=== PATIENT | male | born 2000 | race Caucasian/White ===

== ENCOUNTER 2022-03-15 11:52 | Emergency (ER) | payer OTHER, SELFPAY ==
[2022-03-15 11:53] VITALS: BP 140/71; PULSE 105; RESP 17; TEMP 37.1; O2SAT 96; BMI 33.0
--- NOTE | 2022-03-15 12:39 | RAD_ITS ---
EXAM: XR CHEST, 2 VIEWS CLINICAL INDICATION: chest pain TECHNIQUE: Frontal and lateral views of the chest. This report was created using [employer] report generation technology. COMPARISON: None. FINDINGS: LUNGS AND PLEURAL SPACES: Normal. No consolidation or edema. No pneumothorax. No effusion. HEART: Normal heart size. MEDIASTINUM: No mediastinal or hilar mass. BONES/JOINTS: No acute abnormality. SOFT TISSUES: Normal. RAD/Chest PA and Lateral IMPRESSION: No acute cardiopulmonary disease. Electronically Signed: Madhav Gray MD at 13:02 EST ,
--- NOTE | 2022-03-15 12:39 | EKG12_ITS ---
Test Reason : NAUSEA/VOMITING Blood Pressure : / mmHG Vent. Rate : 075 BPM Atrial Rate : 075 BPM P-R Int : 158 ms QRS Dur : 084 ms QT Int : 346 ms P-R-T Axes : 044 054 018 degrees QTc Int : 386 ms Sinus rhythm with marked sinus arrhythmia Otherwise normal ECG Confirmed by CLAUDY THOMAS, CORETTA ([id number]), manager editorial CANDIDA WRIGHT ([id number]) on 03/16/2022 12:06:42 PM Referred By: Confirmed By:CORETTA LOCO MD
--- NOTE | 2022-03-15 12:42 | EDS_ITS ---
HPI <MICKIE Barlow - Last Filed: 03/15/22 14:25> History of Present Illness Chief Complaint: Nausea/Vomiting Narrative Narrative: 21-year-old male presents with nausea/vomiting and chest pain. He states for the last 2 years he has vomited once every morning. Yesterday he was vomiting continuously throughout the day what looked like yellow bile. He is nauseous today but has kept down crackers without vomiting. He has never been evaluated for this issue. He does smoke weed almost daily and takes no medications. He also complains of midsternal chest pain that is been constant for the last 5 days. There is no radiation, shortness of breath, or diaphoresis. No leg pain or swelling. No cough or URI symptoms. PFSH <MICKIE Barlow - Last Filed: 03/15/22 14:25> [facility] Medical History Back pain History of fracture of clavicle Home Medications omeprazole 20 mg capsule,delayed release 20 mg PO DAILY #30 CAPSULES 03/15/22 [Rx Last Taken Unknown] ondansetron 4 mg disintegrating tablet 4 mg PO Q8H PRN PRN Nausea #10 tabs 03/15/22 [Rx Last Taken Unknown] Allergy/AdvReac Type Severity Reaction Status Date / Time No Known Allergies Allergy Unverified 03/15/22 11:52 Social History Smoking Status: Never smoker alcohol intake: never substance use type: does not use what type of physical activity do you participate in: none ROS <MICKIE Barlow - Last Filed: 03/15/22 14:25> ROS ED ROS Narrative Constitutional: Negative for fever, chills, malaise. Eyes: Negative for visual change. ENT: Negative for sore throat, ear pain, rhinorrhea. CVS: Negative for palpitations, chest pain, syncope. Respiratory: Negative for shortness of breath, cough, orthopnea. GI: Positive for nausea, vomiting. Negative for abdominal pain, diarrhea, constipation, melena, hematochezia. : Negative for dysuria, hematuria or frequency. Neuro: Negative for headache, motor/sensory dysfunction. Skin: Negative for rash, abscess, or wound. Musc: Negative for joint pain, swelling, trauma. Heme: Negative for easy bruising, bleeding, lymphadenopathy. EXAM <MICKIE Barlow - Last Filed: 03/15/22 14:25> Physical Exam Narrative Exam Narrative: CONST: Patient sitting in no acute distress. EYES: Normal inspection. ENT: Normal inspection, moist mucous membranes. NECK: Normal inspection. RESP: No respiratory distress, CTAB. Chest wall nontender. CVS: Regular rate and rhythm, no murmur, no gallop. ABD: Soft and nontender, no guarding or rebound, nondistended, no hepatosplenomegaly. SKIN: Color normal, no rash, warm, dry, intact. EXTREMITIES: Normal appearance, no pedal edema. NEURO: Oriented x4. PSYCH: Normal affect. Const Vital Signs: 03/15/22 11:53 Temperature 98.8 F Temperature Source Temporal Pulse Rate 105 H Respiratory Rate 17 Blood Pressure 140/71 H Blood Pressure Mean 94 Pulse Ox 96 Oxygen Delivery Method Room Air <Dr. Tiago Pelayo MD - Last Filed: 03/15/22 14:42> Physical Exam Const Vital Signs: 03/15/22 11:53 Temperature 98.8 F Temperature Source Temporal Pulse Rate 105 H Respiratory Rate 17 Blood Pressure 140/71 H Blood Pressure Mean 94 Pulse Ox 96 Oxygen Delivery Method Room Air MDM <MICKIE Barlow - Last Filed: 03/15/22 14:25> [facility] MDM Narrative Medical decision making narrative: Patient presents with days of lower midsternal chest pain and was vomiting yesterday. Today he is just nauseous but has kept down food. He appears well nontoxic. Initial vital signs showed heart rate of 105, otherwise normal. On my exam he is not tachycardic and heart is regular with no murmurs. Lungs clear. Abdomen soft and nontender. EKG is sinus rhythm with no acute ischemia and CXR shows no acute process. His symptoms resolved with Zofran and he is tolerating p.o. intake. I suspect his pain is epigastric in nature as he has had vomiting in the mornings for the last few years and his chest pain is not exertional or pleuritic. He also smokes weed daily which could be contributing. I prescribed omeprazole and Zofran for home with a primary care referral and he was discharged in stable condition. Radiography Chest X-Ray - ED: 1 View, Read by ED Physician, Read by Radiologist and Normal Diagnostic Testing: Clinical Impression(s) from Imaging Studies Chest X-Ray 03/15/22 12:39 IMPRESSION: No acute cardiopulmonary disease. Electronically Signed: Madhav Gray MD at 13:02 EST Reading Location ID and State: [address] [place] [address] Tel , Service support , ED attending interpretation shows normal heart size, no acute infiltrate, edema, or effusion. EKG Initial EKG: Attestation: I personally reviewed and interpreted this EKG as follows: Comments: Sinus rhythm with marked sinus arrhythmia No acute ischemia VT interval 158 ms, QRS duration 84 ms, QTC 386 ms <Dr. Tiago Pelayo MD - Last Filed: 03/15/22 14:42> [facility] MDM Narrative Medical decision making narrative: Patient presents with days of lower midsternal chest pain and was vomiting yesterday. Today he is just nauseous but has kept down food. He appears well nontoxic. Initial vital signs showed heart rate of 105, otherwise normal. On my exam he is not tachycardic and heart is regular with no murmurs. Lungs clear. Abdomen soft and nontender. EKG is sinus rhythm with no acute ischemia and CXR shows no acute process. His symptoms resolved with Zofran and he is tolerating p.o. intake. I suspect his pain is epigastric in nature as he has had vomiting in the mornings for the last few years and his chest pain is not exertional or pleuritic. He also smokes weed daily which could be contributing. I prescribed omeprazole and Zofran for home with a primary care referral and he was discharged in stable condition. I have personally performed a face to face assessment of the patient and have reviewed the LEONIE Note. I performed a substantive portion of the visit including all aspects of the following. My soto findings include: History is [21-year-old male with 2-year history of nausea and vomiting. Epigastric abdominal pain. No melena. No hematemesis. Evaluate the patient with our physician vector control assistant.] Exam is [well-appearing 21-year-old. Vital signs stable afebrile. Really no significant findings on exam. H EENT exam normal. Lungs clear. Heart regular rhythm. Abdomen soft nondistended normal bowel sounds no peritoneal signs. Really no significant epigastric tenderness. Both the right upper and right lower quadrant unremarkable. Moving all 4 extremities. Calves are nontender without edema or cords. Neurologically is awake alert with no focal motor deficits.] Medical Decision Making [EKG and chest x-ray were both normal. Patient be jan ated as a gastritis and/or reflux. Treated with omeprazole for reflux and Zofran for nausea.] Other additions or changes: [None] Radiography Chest X-Ray - ED: Heart, Lungs, Mediastinum, Bony Structures and No Acute Disease Diagnostic Testing: Clinical Impression(s) from Imaging Studies Chest X-Ray 03/15/22 12:39 IMPRESSION: No acute cardiopulmonary disease. Electronically Signed: Madhav Gray MD at 13:02 EST , ED attending interpretation shows normal heart size, no acute infiltrate, edema, or effusion. Chest x-ray normal. Rhythm Strip Rhythm Strip: Sinus Rhythm Ectopy: None EKG Initial EKG: Interpretation: Sinus Rhythm and No Acute Injury Pattern Discharge Plan Triage Chief Complaint: Nausea/Vomiting ED Midlevel Provider: Jossy Nance ED Provider: Tiago Pelayo Dx/Rx/DC Orders Clinical Impression: Nausea & vomiting, Atypical chest pain Instructions: ED GERD (Adult), ED Vomiting (Adult) Prescriptions: New ondansetron 4 mg tablet,disintegrating 4 mg PO Q8H PRN PRN (Reason: Nausea) Qty: 10 0RF omeprazole 20 mg capsule,delayed release(DR/EC) 20 mg PO DAILY Qty: 30 0RF Primary Care Provider: Noah Spring Referrals: Noah Spring DO [Primary Care Provider] - Oneil Hollis MD [Med Staff - Active Staff] - Activity Restrictions/Additional Instructions: I suspect your vomiting and chest pain is from heartburn and gastritis. I prescribed medication to treat heartburn and Zofran which you take as needed for nausea and vomiting. Please follow-up with a primary care doctor. Disposition Disposition: Home, Self Care
[2022-03-15] MEDS: Ondansetron ODT 4 MG Tablet PO (12:49)
[2022-03-15 13:52] VITALS: RESP 16
[2022-03-15 14:24] VITALS: BP 136/84; RESP 16
== END 2022-03-15 14:54 | disposition home or self-care (01) ==
PROVIDERS: Emergency Provider Emergency Medicine; PCP Family Medicine; Visit Provider Emergency Medicine
DX: R07.89 Other chest pain (principal); R11.2 Nausea with vomiting, unspecified; R10.13 Epigastric pain
CPT/HCPCS: 71046; 93005; 99283